=== PATIENT | female | born 1975 | race Caucasian/White ===

== ENCOUNTER → 2024-01-26 09:41 | Outpatient (REF) | payer OTHER, SELFPAY ==
[2024-01-26 12:25] LABS: Glycohemoglobin (HgbA1c) 7.6 % (4.0-5.6)
[2024-01-26 12:47] LABS: ALT (SGPT) 26 U/L (0-35); AST (SGOT) 45 U/L (14-36); Albumin 4.7 g/dl (3.5-5.0); Alkaline Phosphatase 89 U/L (38-126); Blood Urea Nitrogen 16 mg/dl (7-17); Calcium 9.8 mg/dl (8.4-10.2); Carbon Dioxide 27 mmol/L (22-30); Chloride 101 mmol/L (98-107); Glucose 107 mg/dl (70-99); HDL Cholesterol 38 mg/dl; LDL Cholesterol, Calculated 51 mg/dl; Potassium 4.6 mmol/L (3.5-5.1); Sodium 137 mmol/L (135-145); Total Bilirubin 0.7 mg/dl (0.2-1.3); Total Cholesterol 134 mg/dl (50-199); Total Protein 7.6 g/dl (6.3-8.2); Triglyceride 227 mg/dl (10-149); Very Low Density Lipoprotein 45 mg/dl (0-30); eGFR > 60.00
== END ==
LOC: REG 09:41
PROVIDERS: ATTENDING PHYSICIAN Nurse Practitioner Family
DX: E11.9 Type 2 diabetes mellitus without complications (principal)
CPT/HCPCS: 36415; 80053; 80061; 83036

== ENCOUNTER → 2024-03-15 07:38 | Outpatient (REF) | payer OTHER, SELFPAY | LOC: WDC 07:38 | PROVIDERS: ATTENDING PHYSICIAN Obstetrics & Gynecology Gynecology | DX: Z12.31 Encounter for screening mammogram for malignant neoplasm of breast (principal) | CPT/HCPCS: 77063; 77067 ==

== ENCOUNTER → 2025-01-31 13:52 | Outpatient (REF) | payer OTHER, SELFPAY ==
[2025-01-31 14:30] LABS: % Basophils 0.5 % (0-2); % Eosinophils 2.1 % (0-6); % Immature Granulocytes 0.4 % (0-0.5); % Lymphocytes 27.6 % (20.5-51.1); % Monocytes 5.4 % (1.7-9.3); Absolute Eosinophils 0.2 10^3/uL (0-0.7); Absolute Lymphocytes 2.2 10^3/uL (1.2-3.4); Absolute Monocytes 0.4 10^3/uL (0.1-0.6); Absolute Neutrophils 5.2 10^3/uL (1.4-6.5); Hematocrit 40.7 % (37.0-47.0); Hemoglobin 13.5 g/dL (12.0-16.0); Mean Corp Hgb Conc. 33.2 g/dL (33.0-37.0); Mean Corpuscular Volume 81.4 fL (81.0-99.0); Mean Platelet Volume 10.7 fL (7.4-10.4); Nucleated Red Blood Cells % 0 %; Platelet Count 235 10^3/uL (130-400); Red Cell Dist. Width 13.6 % (11.5-14.5); White Blood Cell Count 8.1 10^3/uL (4.8-10.8)
[2025-01-31 15:39] LABS: Ferritin 30.6 ng/ml (11.1-264.0)
[2025-02-02 15:11] LABS: Erythropoietin (EPO) 12 mU/mL (4-27)
[2025-02-02 21:27] LABS: Capillary Hgb Electrophoresis Not Performed; Sickle Cell Solubility Reflex Not Performed
== END ==
LOC: REG 13:52
PROVIDERS: ATTENDING PHYSICIAN Internal Medicine Hematology & Oncology
DX: D75.1 Secondary polycythemia (principal)
CPT/HCPCS: 36415; 82668; 82728; 83021; 85025

== ENCOUNTER → 2025-03-17 07:25 | Outpatient (REF) | payer OTHER, SELFPAY | LOC: WDC 07:25 | PROVIDERS: ATTENDING PHYSICIAN Obstetrics & Gynecology Gynecology; FAMILY PHYSICIAN Family Medicine | DX: Z12.31 Encounter for screening mammogram for malignant neoplasm of breast (principal) | CPT/HCPCS: 77063; 77067 ==